=== PATIENT | female | born 1970 | race Caucasian/White ===

== ENCOUNTER → 2024-04-27 06:28 | Day surgery (SDC) | payer BC, SELFPAY | LOC: GI 06:28 | PROVIDERS: ATTENDING PHYSICIAN Internal Medicine Gastroenterology | DX: Z12.11 Encounter for screening for malignant neoplasm of colon (principal); K63.3 Ulcer of intestine; D12.4 Benign neoplasm of descending colon; Z80.0 Family history of malignant neoplasm of digestive organs | CPT/HCPCS: 45385; 45380; 88305; 88312 ==

== ENCOUNTER → 2024-05-15 14:26 | Outpatient (REF) | payer BC, SELFPAY | LOC: HWWDC 14:26 | PROVIDERS: ATTENDING PHYSICIAN Obstetrics & Gynecology Gynecology; FAMILY PHYSICIAN Family Medicine | DX: Z12.31 Encounter for screening mammogram for malignant neoplasm of breast (principal) | CPT/HCPCS: 77063; 77067 ==

== ENCOUNTER → 2024-05-22 09:43 | Outpatient (REF) | payer BC, SELFPAY | LOC: WDC 09:43 | PROVIDERS: ATTENDING PHYSICIAN Obstetrics & Gynecology Gynecology; FAMILY PHYSICIAN Family Medicine | DX: R92.8 Other abnormal and inconclusive findings on diagnostic imaging of breast (principal) | CPT/HCPCS: 76642 ==

== ENCOUNTER → 2025-04-22 10:15 | Outpatient (REF) | payer BC, SELFPAY | LOC: WDC 10:15 | PROVIDERS: ATTENDING PHYSICIAN Student in an Organized Health Care Education/Training Program; FAMILY PHYSICIAN Family Medicine | DX: N64.4 Mastodynia (principal) | CPT/HCPCS: 76642; 77062; 77066 ==